=== PATIENT | female | born 1960 | race Caucasian/White ===

== ENCOUNTER → 2019-08-20 11:00 | Outpatient (CLI) | payer BC, SELFPAY ==
--- NOTE | 2019-08-20 11:00 | BRBX_PTH ---
PATIENT: EFRA BARAKAT LOC: [facility] U#:[id number] AGE/SX: 65/F ROOM: RE08/20/[address]: Dr. Jacquelyn Quershi MD : [id number] BED: DIS: SPEC #: [id number] RECD: 08/20/19 12:23 STATUS: VERNA REJosefa #: [id number] SARAH: 08/20/19 11:[address]: Jacquelyn Qureshi DEPT: SURGICAL PATHOLOGY RECD BY: Katharina Segovia ENTERED: 08/20/19 12:39 SP TYPE: BREAST BX OTHR DR: Dr. Donn Velásquez DO Tissues: Right breast, NOS Procedures: Surgery Specimen Level IV HEADER OPERATION: Right breast stereotactic biopsy PRE-OP DIAGNOSIS: Right hypoechoic lesion 2 o'clock subareolar TISSUE SUBMITTED: Right breast core tissue ISCHEMIC TIME: 1 minute FIXATION TIME: 8.5 hours MICROSCOPIC DIAGNOSIS Right breast, stereotactic needle core biopsy: Dense collagenized stroma. Intraductal hyperplasia without atypia. Mild fibrocystic change. No evidence of malignancy. AM:kieran 08/21/19 MICROSCOPIC DESCRIPTION Slides are reviewed. GROSS DESCRIPTION Received is one container labeled with the patient's name and not further designated. The specimen consists of multiple elongated fragments of bradley-yellow fibroadipose tissue that in aggregate measure 5 x 3 x 0.3 cm. The entire specimen is submitted in two cassettes. / SJ:kieran 08/20/19 TC:5 CPT: 71791
--- NOTE | 2019-08-20 11:58 | OP.PCM_ITS ---
Report of Operation Date of Procedure: 08/20/19 Pre-Operative Diagnosis: abnormal lesion on right breast mammograms Post-Operative Diagnosis: same Surgery/Procedure Performed:: right breast stereotactic biopsy Description of Surgical Findings:: abnormal lesion seen on right breast mammograms Type of Anesthesia:: Local Specimen's removed: right breast tissue Estimated Blood Loss (mL): minimal Description of Procedure: After informed consent was given, the patient was brought into the breast biopsy suite. Appropriate time out protocol was followed. She was then placed in the prone position on the stereotactic biopsy table. The patient?s right breast was then placed in the opening at the head of the table. A back end engineer compression mammogram was then obtained in the lateral view. The suspicious radiological lesion was then identified. Stereo pictures of the lesion were then taken for XYZ coordinates. The Mammotome biopsy stylus was then positioned where it would be entering into the patient?s breast. The skin at this site was then cleansed with a surgical skin preparation. The skin and subcutaneous tissues at this site were then infiltrated with 1% xylocaine. A small skin incision was made with an 11 blade scalpel. The biopsy stylus was then positioned into the patient?s breast at the proper coordinates of depth. Using the Mammotome vacuum-assist device, several core samples of breast tissue were obtained. A hemostatic marker clip was then placed into the biopsy cavity and a back end engineer film revealed that it was properly deployed. The patient was then placed in the supine position and pressure was applied to the breast until no active bleeding was noted. Steristrips were applied to reapproximate the skin. A unilateral mammogram in the CC and MLO view were then taken which revealed that the marker clip was in the same area as the previous suspicious lesion. The patient tolerated the procedure well and was discharged from the breast biopsy suite in good condition. - Complications none noted
== END ==
PROVIDERS: Family Provider Preventive Medicine Occupational Medicine; PCP Preventive Medicine Occupational Medicine; Referring Provider Surgery; Visit Provider Surgery
DX: N62 Hypertrophy of breast (principal); N60.11 Diffuse cystic mastopathy of right breast
CPT/HCPCS: 19081; 88305; J7050